=== PATIENT | female | born 1955 | race Caucasian/White ===

== ENCOUNTER 2019-11-15 11:13 | Outpatient (CLI) | payer MEDICARE, SELFPAY ==
[2019-11-15 11:52] LABS: Abs Immature Grans 0.18 k/cumm (0.0-0.09); Absolute Eosinophil Count 0.52 k/cumm (0.0-0.7); Basophils % 0.2; Eosinophils % 2.9; HCT 47.3 % (36.0-46.0); Lymphocytes % 3.1; Mean Corp. HGB Concentration 31.7 g/dL (32.0-36.0); Mean Corpuscular Hemoglobin 32.1 pg (27.0-33.0); Mean Corpuscular Volume 101.1 fL (80-95); Mean Platelet Volume 10.2 fL (8.0-11.0); Monocytes % 9.9; Neutrophils % 82.9; Platelet Count 310 x1000/uL (130-400); RBC 4.68 m/cumm (4.00-5.20); RBC Distribution Width 13.4 % (11.7-14.6); White Blood Cell Count 17.81 k/cumm (4.4-10.8)
[2019-11-15 11:55] LABS: Absolute Basophil Count 0.04 k/cumm (0.0-0.2); Absolute Lymphocyte Count 0.55 k/cumm (1.2-3.4); Absolute Monocyte Count 1.76 k/cumm (0.11-0.7); Absolute Neutrophil Count 14.76 k/cumm (1.2-6.7)
[2019-11-15 12:11] LABS: ALT 53 U/L (14-59); AST 22 U/L (15-37); Albumin 2.3 g/dL (3.4-5.0); Alkaline Phosphatase 207 U/L (46-116); Anion Gap 7.2 mmol/L (3-11); BUN 41 mg/dL (7-18); Bilirubin, Total 0.6 mg/dL (0.2-1.0); CO2 34.8 mmol/L (21.0-32.0); CREATININE 0.71 mg/dL (0.55-1.02); Calcium 9.8 mg/dL (8.5-10.1); Chloride 103 mmol/L (98-107); Glucose 115 mg/dL (74-106); Potassium 4.7 mmol/L (3.5-5.1); Sodium 145 mmol/L (136-145); T4 9.8 ug/mL (4.7-13.3); TSH 0.04 uIU/mL (0.36-3.74); Total Protein 6.8 g/dL (6.4-8.2)
== END 2019-11-15 11:33 ==
PROVIDERS: PCP Family Medicine; Visit Provider Internal Medicine Hematology & Oncology
DX: C34.92 Malignant neoplasm of unspecified part of left bronchus or lung (principal); E06.4 Drug-induced thyroiditis
CPT/HCPCS: 36415; 80053; 84436; 84443; 85025